=== PATIENT | female | born 1950 | race Caucasian/White ===

== ENCOUNTER 2022-02-05 22:33 | Emergency (ER) | payer MEDICARE ==
[~2022-02-05] VITALS: Ht 170.2 cm; Wt 53.1 kg
[~2022-02-05 22:33] MED LIST: CLEOCIN HCL300 MG PO; GABAPENTIN100 MG PO; LISINOPRIL-HCT1 EAC1 PO; MYSOLINE50 MG PO; NAPROXEN500 MG PO; PERCOCET 7.5-31 EACH PO
--- OUTSIDE RECORDS SUMMARY | 2022-02-05 22:36 | XMS ---
PreManage Notification: TAMAR BURTON Security Pest Controller Assistant Events No recent Security Events currently on file CRITERIA MET - GANESH C[facility] PROVIDERS ALICIA GT[facility] Internal Medicine Current PHONE: Unknown [facility] Current PHONE: [phone] Adi has no Care Guidelines for this patient. [place] VISIT COUNT (12 MO.) 2 DANAE Heath TOTAL 2 NOTE: Visits indicate total known visits. ED/UCC VISIT TRACKING (12 MO.) 02/05/2022 22:33 [facility] [place] TYPE: Emergency COMPLAINT: - RIGHT LEG WOUND 03/17/2021 15:11 [facility] [place] TYPE: Emergency COMPLAINT: - RT FOOT PAIN DIAGNOSES: - Personal history of malignant neoplasm of breast - Essential (primary) hypertension - Other supervisor intermediates (current) drug therapy - Pain in right lower leg - Pain in right ankle and joints of right foot - Cellulitis of right lower limb INPATIENT VISIT TRACKING (12 MO.) No inpatient visits to display in this time frame [email or web address]
== END 2022-02-06 01:35 | disposition home or self-care (01) ==
LOC: ED 22:33
DX: S91.001D Unspecified open wound, right ankle, subsequent encounter (principal); I10 Essential (primary) hypertension; Z85.3 Personal history of malignant neoplasm of breast; Z79.899 Other long term (current) drug therapy
CPT/HCPCS: 99282

== ENCOUNTER 2023-01-30 03:20 | Emergency (ER) | payer MEDICARE ==
[~2023-01-30] VITALS: Wt 53.1 kg
--- OUTSIDE RECORDS SUMMARY | ~2023-01-30 | XMS | Continuity of Care Document ---
Demographics + + + | Address | [address] | | | [place] [address] | + + + | Preferred Language | Unknown | + + + | Marital Status | | + + + | Rastafarian Affiliation | Unknown | + + + | Race | White | + + + | Ethnic Group | Not or | + + + Author + + + | Author | [facility] | + + + | Organization | [facility] | + + + | Address | [address] | | | [place] [address] | + + + | Phone | | + + + Care Team Providers + + + + | Care Resource Management Specialist Name | Role | Phone | + + + + Unavailable | Unavailable | + + + + Unavailable | Unavailable | + + + + Allergies No information. Encounters No information. Functional Status No information. Immunizations No information. Medications + + + + | date | description | facility | + + + + | 2022-02-07 00:00 | OXYCODONE | [facility] | | | HCL/ACETAMINOPHEN | | + + + + | 2022-02-07 00:00 | | [facility] | | | LISINOPRIL/HYDROCHLOROTHIAZ | | | | IMELDA | | + + + + | 2022-02-07 00:00 | NAPROXEN | [facility] | + + + + | 2022-02-07 00:00 | PRIMIDONE | [facility] | + + + + | 2021-03-17 00:00 | GABAPENTIN | [facility] | + + + + Problems + + + + | date | description | facility | + + + + | 2015-04-03 00:00 | Contusion of knee | [facility] | + + + + | 2021-03-17 00:00 | Cellulitis | [facility] | + + + + | 2022-02-06 00:00 | Encounter for wound | [facility] | | | re-check | | + + + + Procedures No information. Results/Labs No information. Social History No information. Vital Signs + + + +---------+ | date | measurement | value | units | + + + +---------+ | 2022-02-05 00:00 | BMI | 18.3 | kg/m2 | + + + +---------+ | 2022-02-05 00:00 | height_metric | 170.18 | cm | + + + +---------+ | 2022-02-05 00:00 | height_standard | 67 | in | + + + +---------+ | 2022-02-05 00:00 | weight_metric | 53.07 | kg | + + + +---------+ | 2022-02-05 00:00 | weight_standard | 117 | lb | + + + +---------+ | 2022-02-06 00:00 | BP_diastolic | 72 | mmHg | + + + +---------+ | 2022-02-06 00:00 | BP_systolic | 116 | mmHg | + + + +---------+ | 2022-02-06 00:00 | heart_rate | 68 | /min | + + + +---------+ | 2022-02-06 00:00 | o2_saturation | 98 | % | + + + +---------+ | 2022-02-06 00:00 | respiration_rate | 16 | /min | + + + +---------+ | 2022-02-06 00:00 | temperature_metric | 36.72 | C | | | | | | + + + +---------+ | 2022-02-06 00:00 | | 98.1 | F | | | temperature_standar | | | | | d | | | + + + +---------+"
--- OUTSIDE RECORDS SUMMARY | ~2023-01-30 | XMS | Continuity of Care Document ---
Demographics + + + | Address | [address] | | | [place] [address] | + + + | Preferred Language | Unknown | + + + | Marital Status | | + + + | Oriental Orthodox Affiliation | Unknown | + + + | Race | White | + + + | Ethnic Group | Not or | + + + Author + + + | Author | [facility] | + + + | Organization | [facility] | + + + | Address | [address] | | | [place] [address] | + + + | Phone | | + + + Care Team Providers + + + + | Care Outbound Sales Specialist Name | Role | Phone | + + + + Unavailable | Unavailable | + + + + Unavailable | Unavailable | + + + + Allergies No information. Encounters No information. Functional Status No information. Immunizations No information. Medications + + + + | date | description | facility | + + + + | 2022-02-07 00:00 | OXYCODONE | [facility] | | | HCL/ACETAMINOPHEN | | + + + + | 2022-02-07 00:00 | | [facility] | | | LISINOPRIL/HYDROCHLOROTHIAZ | | | | IMELDA | | + + + + | 2022-02-07 00:00 | NAPROXEN | [facility] | + + + + | 2022-02-07 00:00 | PRIMIDONE | [facility] | + + + + | 2021-03-17 00:00 | GABAPENTIN | [facility] | + + + + Problems + + + + | date | description | facility | + + + + | 2015-04-03 00:00 | Contusion of knee | [facility] | + + + + | 2021-03-17 00:00 | Cellulitis | [facility] | + + + + | 2022-02-06 00:00 | Encounter for wound | [facility] | | | re-check | [...]
[2023-01-30 05:53] VITALS: BP 130/90
--- NOTE | 2023-01-31 13:09 | EKG ---
[facility] [address] [place], [place] [address] Signed Sinus tachycardia with premature atrial complexes Biatrial enlargement Left axis deviation Left bundle branch block Abnormal ECG prolonged QTc No previous ECGs available Confirmed by ELIZABETH CHOPRA MD ([id number]) on 01/31/2023 1:08:59 PM Electronically Signed By: ELIZABETH CHOPRA 01/31/23 1309 PATIENT NAME: TAMAR BURTON Electrocardiogram DATE OF : 46 PHYSICIAN: ELIZABETH CHOPRA REPORT #: [id number] REPORT IS CONFIDENTIAL AND NOT TO BE RELEASED WITHOUT AUTHORIZATION
== END 2023-01-30 06:00 | disposition short-term general hospital (02) ==
LOC: ED 03:20
DX: J81.0 Acute pulmonary edema (principal); Q25.43 Congenital aneurysm of aorta; I10 Essential (primary) hypertension; Z79.899 Other long term (current) drug therapy
CPT/HCPCS: 36415; 71045; 71275; 74175; 80053; 81001; 83605; 83880; 84484; 85025; 87040; 87502; 93005; 93010; 94640; 94660; C9803; J0696; J1940; J2930; Q9967; U0002

== ENCOUNTER 2023-09-08 08:12 | Inpatient (IN) | payer MEDICARE ==
[~2023-09-08] VITALS: Ht 170.2 cm; Wt 44.5 kg
[2023-09-08] MEDS ORDERED: PANTOPRAZOLE SODIUM 40 MG/10 ML VIAL IV ONE (08:30)
[2023-09-08] MEDS ORDERED: HYDROmorphone HCL 1 MG/ML SYR IV PRN (08:30)
[2023-09-08] MEDS ORDERED: ondansetron HCL 4 MG/2 ML VIAL IV ONE (08:45)
[2023-09-08 08:47] LABS: BASOPHILS 0.4 % (0-2); EOSINOPHILS 0.1 % (0-6); HEMATOCRIT 34.2 % (35.0-50.0); HEMOGLOBIN 11.1 g/dL (12.0-18.0); LYMPHOCYTES 6.7 % (24-44); MCH 29.5 (27-36); MCHC 32.6 g/dl (30-36); MCV 90.6 fl (81-99); MONOCYTES 7.6 % (0-12); NEUTROPHILS 85.2 % (39-80); PLATELET COUNT 388 K/uL (140-440); RBC 3.78 M/ul (4.3-5.7); RDW 14.9 (10.5-15.0)
[2023-09-08 08:58] LABS: PARTIAL THROMBOPLASTIN TIME 108.1 Sec (22.9-41.3)
[2023-09-08 08:59] LABS: ALBUMIN/GLOBULIN RATIO 0.58 (1.1-2.4); ANION GAP 12.5 (7-21); BILIRUBIN, TOTAL 0.9 ng/dL (0.2-1.0); BUN/CREATININE RATIO 30.76 (6.0-28.6); CREATININE, SERUM 0.91 mg/dL (0.55-1.02); POTASSIUM 3.5 mmol/L (3.5-5.1); PROTEIN, TOTAL 8.2 g/dL (6.4-8.2)
[2023-09-08 09:18] LABS: ABO A; RH POSITIVE
[2023-09-08 09:19] LABS: ANTIBODY SCREEN NEGATIVE
[2023-09-08 09:23] LABS: PROTIME > 150.0 Sec (11.2-14.2)
[2023-09-08] MEDS ORDERED: METOPROLOL TART50 MG PO (09:27)
[2023-09-08] MEDS ORDERED: OMEPRAZOLE40 MG PO (09:27)
[2023-09-08] MEDS ORDERED: FARXIGA10 MG PO (09:28)
[2023-09-08] MEDS ORDERED: HYDROCHLOROTHIA25 MG PO (09:28)
[2023-09-08] MEDS ORDERED: ENTRESTO 24 MG1 EACH PO (09:29)
[2023-09-08] MEDS ORDERED: SODIUM CHLORIDE 0.9% 500 ML IV PRN (09:30)
[2023-09-08] MEDS ORDERED: PHYTONADIONE IV ONE (09:45)
[2023-09-08] MEDS ORDERED: DEXTROSE 5% IV ONE (09:45)
[2023-09-08 10:21] LABS: PARTIAL THROMBOPLASTIN TIME 138.9 Sec (22.9-41.3)
[2023-09-08] MEDS ORDERED: ondansetron HCL 4 MG/2 ML VIAL IV PRN (10:30)
[2023-09-08 10:33] LABS: BILIRUBIN, URINE NEGATIVE (negative); BLOOD/HGB, URINE LARGE (Negative); KETONE, URINE SMALL (Negative); LEUK ESTERASE, URINE MODERATE (negative); NITRITE, URINE POSITIVE (negative)
[2023-09-08 10:44] LABS: CASTS, URINE NONE SEEN \\lpf; CRYSTALS, URINE NONE SEEN (0-1+); EPITHELIAL CELLS, URINE 0 /lpf (0-1+); RED BLOOD CELLS, URINE >50 /hpf (0-5)
[2023-09-08 10:45] LABS: BACTERIA, URINE 2+ /hpf (negative); COLLECTION TYPE, URINE CLEAN CATCH; REFLEX CULTURE, URINE Yes (No)
[2023-09-08 10:54] LABS: PROTIME > 150.0 Sec (11.2-14.2)
[2023-09-08 11:04] VITALS: BP 116/62
[2023-09-08] MEDS ORDERED: PHARMACY RENAL DOSE ADJUSTMENT 1 DOSE MISC PO SCH (12:00)
[2023-09-08 12:55] VITALS: BP 116/62
[2023-09-08 12:58] VITALS: BP 116/60
--- NOTE | 2023-09-08 14:14 | EKG ---
[facility] [address] [place] [address] Signed Normal sinus rhythm Possible Left atrial enlargement Left axis deviation Left bundle branch block Abnormal ECG When compared with ECG of 30-JAN-2023 03:19, premature atrial complexes are no longer present Vent. rate has decreased BY 51 BPM T wave inversion less evident in Lateral leads Confirmed by KATIE JEAN MD ([id number]) on 09/08/2023 2:13:46 PM Electronically Signed By: KATIE JEAN 09/08/23 1414 PATIENT NAME: TAMAR BURTON Electrocardiogram DATE OF : 46 PHYSICIAN: KATIE JEAN REPORT #: [id number] REPORT IS CONFIDENTIAL AND NOT TO BE RELEASED WITHOUT AUTHORIZATION
[2023-09-08 16:08] LABS: INR 1.8 (0.80-1.30); PROTIME 20.5 Sec (11.2-14.2)
[2023-09-08] MEDS ORDERED: DEXTROSE 50% 50 ML SYR IV PRN ×2 (17:00)
[2023-09-08] MEDS ORDERED: IBLOOD GLUCOSE TEST STRIP 1 EA TEST VI SCH (17:00)
[2023-09-08] MEDS ORDERED: GLUCAGON,HUMAN RECOMBINANT 1 MG/ML VIAL SUB-Q PRN (17:00)
[2023-09-08] MEDS ORDERED: INSULIN LISPRO 100 UNIT/ML ML SUB-Q SCH (17:00)
[2023-09-08] MEDS ORDERED: IBLOOD GLUCOSE TEST STRIP 1 EA TEST XX PRN (17:00)
[2023-09-08] MEDS ORDERED: DEXTROSE 5% 1,000 ML IV PRN (17:00)
[2023-09-08 17:40] VITALS: BP 96/58
[2023-09-08 17:43] VITALS: BP 116/60
[2023-09-08 20:45] LABS: EOSINOPHILS 0.7 % (0-6); HEMATOCRIT 27.3 % (35.0-50.0); LYMPHOCYTES 16.3 % (24-44); MCHC 33.1 g/dl (30-36); MCV 90.5 fl (81-99); MONOCYTES 10.2 % (0-12); NEUTROPHILS 72.8 % (39-80); PLATELET COUNT 295 K/uL (140-440); RBC 3.01 M/ul (4.3-5.7); RDW 14.6 (10.5-15.0)
[2023-09-08 20:54] VITALS: BP 96/56
[2023-09-08 21:00] LABS: INR 1.55 (0.80-1.30); PROTIME 18.2 Sec (11.2-14.2)
[2023-09-08] MEDS ORDERED: MELATONIN 3 MG TAB PO PRN (21:00)
[2023-09-08] MEDS ORDERED: PRIMIDONE 50 MG TAB PO SCH (21:00)
[2023-09-08] MEDS ORDERED: TRIMETHOPRIM/SULFAMETHOXAZOLE 1 EA TAB PO SCH (21:00)
[2023-09-08] MEDS ORDERED: ENOXAPARIN SODIUM 40 MG/0.4 ML SYR SUB-Q SCH (22:30)
[2023-09-09] VITALS (13 sets, daily range): BP systolic 84–113; BP diastolic 48–68
[2023-09-09 05:34] LABS: BASOPHILS 1.4 % (0-2); EOSINOPHILS 1.1 % (0-6); HEMATOCRIT 24.9 % (35.0-50.0); HEMOGLOBIN 8.3 g/dL (12.0-18.0); LYMPHOCYTES 23.2 % (24-44); MCH 30.3 (27-36); MCHC 33.4 g/dl (30-36); MCV 90.8 fl (81-99); MONOCYTES 10.9 % (0-12); NEUTROPHILS 63.4 % (39-80); PLATELET COUNT 273 K/uL (140-440); RBC 2.74 M/ul (4.3-5.7); RDW 14.9 (10.5-15.0)
[2023-09-09 05:41] LABS: ANION GAP 10.4 (7-21); BUN/CREATININE RATIO 34.44 (6.0-28.6); CALCIUM 8.2 mg/dL (8.5-10.1); CREATININE, SERUM 0.9 mg/dL (0.55-1.02); POTASSIUM 3.4 mmol/L (3.5-5.1)
[2023-09-09 06:04] LABS: INR 1.43 (0.80-1.30)
[2023-09-09] MEDS ORDERED: PANTOPRAZOLE SODIUM 40 MG TABEC PO SCH (09:00)
[2023-09-09] MEDS ORDERED: METOPROLOL TARTRATE 50 MG TAB PO SCH (09:00)
[2023-09-09] MEDS ORDERED: LOSARTAN POTASSIUM 100 MG TAB PO SCH (09:00)
[2023-09-09] MEDS ORDERED: SENNOSIDES/DOCUSATE 1 EA TAB PO SCH (09:00)
[2023-09-09] MEDS ORDERED: VALSARTAN 160 MG TAB PO SCH (09:00)
[2023-09-09] MEDS ORDERED: hydroCHLOROthiazide 25 MG TAB PO SCH (09:00)
[2023-09-09] MEDS ORDERED: ASPIR-TRIN325 MG PO (10:09)
[2023-09-09] MEDS ORDERED: WARFARIN SOD 4 MG TAB PO SCH (16:00)
[2023-09-09] MEDS ORDERED: WARFARIN PER PHARMACY PROTOCOL PO SCH (16:00)
[2023-09-09] MEDS ORDERED: POLYETHYLENE GLYCOL 3350 1 PACKET PO SCH (21:00)
[2023-09-09] MEDS ORDERED: SACUBITRIL/VALSARTAN 1 EACH TABLET PO SCH (21:00)
[2023-09-09] MEDS ORDERED: SODIUM CHLORIDE 0.9% 500 ML IV SCH (22:00)
[2023-09-10 03:45] VITALS: BP 111/68
[2023-09-10 05:41] LABS: INR 3.13 (0.80-1.30); PROTIME 31.9 Sec (11.2-14.2)
[2023-09-10 10:31] VITALS: BP 107/70
[2023-09-10] MEDS ORDERED: SULFAMETHOXAZO1 EAC1 PO (10:45)
[2023-09-10] MEDS ORDERED: WARFARIN SODIUM5 MG PO (10:53)
[2023-09-10] MEDS ORDERED: KLOR-CON 1010 MEQ PO (10:56)
[2023-09-10] MEDS ORDERED: WARFARIN SODIUM4 MG PO (11:04)
[2023-09-10 11:10] VITALS: BP 107/70
[2023-09-10 11:21] LABS: HEMATOCRIT 26.5 % (35.0-50.0); HEMOGLOBIN 8.7 g/dL (12.0-18.0); MCH 30.1 (27-36); MCV 91.3 fl (81-99); RBC 2.9 M/ul (4.3-5.7); RDW 14.9 (10.5-15.0)
[2023-09-10 12:24] VITALS: BP 110/59
[2023-09-10 12:28] VITALS: BP 110/59
[2023-09-10] MEDS ORDERED: WARFARIN SOD HOLD 1 EA PO SCH (16:00)
== END 2023-09-10 12:45 | disposition home or self-care (01) | DRG 918 ==
LOC: ED 08:12 → MS 10:14
PROVIDERS: Emergency Medicine; Internal Medicine; ADMIT Internal Medicine; ATTEND Internal Medicine
DX: T45.511A Poisoning by anticoagulants, accidental (unintentional), initial encounter (principal); N39.0 Urinary tract infection, site not specified; D68.9 Coagulation defect, unspecified; D64.9 Anemia, unspecified; E11.9 Type 2 diabetes mellitus without complications; I48.91 Unspecified atrial fibrillation; I10 Essential (primary) hypertension; Z85.3 Personal history of malignant neoplasm of breast; Z98.890 Other specified postprocedural states; Z79.899 Other long term (current) drug therapy; Z79.01 Long term (current) use of anticoagulants
CPT/HCPCS: 36415; 71045; 80048; 80053; 81001; 85025; 85027; 85610; 85730; 86850; 86900; 86901; 87088; 93005; 93010; A9270; C9113; J1170; J1650; J2405; J3430; J7040

== ENCOUNTER 2024-11-23 05:44 | Day surgery (SDC) | payer MEDICARE ==
[~2024-11-23] VITALS: Ht 170.2 cm; Wt 52.2 kg
[~2024-11-23 05:44] MED LIST changes: +ASPIR-TRIN325 MG PO; +ENTRESTO 24 MG1 EACH PO; +FARXIGA10 MG PO; +HYDROCHLOROTHIA25 MG PO; +KLOR-CON 1010 MEQ PO; +LACTATED RINGER'S 1,000 ML IV SCH; +LOSARTAN POTASS25 MG PO; +METOPROLOL TART50 MG PO; +OMEPRAZOLE40 MG PO; +ROSUVASTATIN CA10 MG PO; +ROSUVASTATIN CA40 MG NG; +SPIRONOLACTONE25 MG PO; +SULFAMETHOXAZO1 EAC1 PO; +WARFARIN SODIUM1 MG PO; +WARFARIN SODIUM4 MG PO; +WARFARIN SODIUM5 MG PO
[2024-11-23 06:05] VITALS: BP 140/85
[2024-11-23] MEDS ORDERED: ENOXAPARIN40 MG/0.4 SUB-Q (06:08)
[2024-11-23] MEDS ORDERED: TYLENOL PM EXS1 EACH PO (06:21)
[2024-11-23] MEDS ORDERED: AMPICILLIN SOD IV SCH (07:00)
[2024-11-23] MEDS ORDERED: HEParin SOD (PORCINE) 5,000 UNIT/ML SDV SUB-Q SCH (07:00)
[2024-11-23] MEDS ORDERED: IBLOOD GLUCOSE TEST STRIP 1 EA TEST VI PRN ×2 (07:00→11:00)
[2024-11-23] MEDS ORDERED: SODIUM CHLORIDE 0.9% IV SCH (07:00)
[2024-11-23] MEDS ORDERED: GENTAMICIN SULFATE 80 MG in SODIUM CHLORIDE 0.9% 100 ML IV SCH (07:00)
[2024-11-23] MEDS ORDERED: LIDOCAINE HCL 1% 5 ML SDV INJ ONE (07:00)
--- NOTE | 2024-11-23 07:51 | NUR ---
LE 0730: [facility] IS HERE TO TAKE PT TO IMAGAING. PT IS SALINE LOCKED.
[2024-11-23] MEDS ORDERED: ACETAMINOPHEN 1,000 MG/100 ML VIAL ONE (10:16)
[2024-11-23] MEDS ORDERED: LIDOCAINE HCL 2% 5 ML SDV ONE ×2 (10:16)
[2024-11-23] MEDS ORDERED: KETOROLAC TROMETHAMINE 30 MG/ML VIAL ONE (10:16)
[2024-11-23] MEDS ORDERED: propofoL 200 MG/20 ML VIAL ONE (10:16)
[2024-11-23] MEDS ORDERED: fentaNYL citrate 100 MCG/2 ML VIAL ONE (10:16)
[2024-11-23] MEDS ORDERED: ondansetron HCL 4 MG/2 ML VIAL ONE (10:16)
[2024-11-23] MEDS ORDERED: DEXAMETHASONE SOD PHOS 4 MG/ML VIAL ONE (10:16)
[2024-11-23] MEDS ORDERED: Methylene Blue 100 MG/10 ML SDV ONE (10:19)
[2024-11-23] MEDS ORDERED: ePHEDrine sulfate 50 MG/ML AMP ONE (10:36)
[2024-11-23] MEDS ORDERED: NALOXONE HCL 0.4 MG SYR IV PRN ×2 (11:00→12:00)
[2024-11-23] MEDS ORDERED: ondansetron HCL 4 MG/2 ML VIAL IV PRN (11:00)
[2024-11-23] MEDS ORDERED: HYDROmorphone HCL 1 MG/ML SYR IV PRN (11:00)
[2024-11-23] MEDS ORDERED: droPERidol 5 MG/2 ML VIAL IV PRN (11:00)
[2024-11-23] MEDS ORDERED: fentaNYL citrate 50 MCG/ML SDV IV PRN (11:00)
[2024-11-23] MEDS ORDERED: PROCHLORPERAZINE EDISYLATE 10 MG/2 ML VIAL IV PRN (11:00)
[2024-11-23] MEDS ORDERED: SEVOFLURANE 250 ML BTL INH ONE (11:31)
--- NOTE | 2024-11-23 11:52 | NUR ---
11/23/24 1152 Leticia Rawls 1135-PT ARRIVES TO PACU VIA STRETCHER, RESTING SEMI FOWLERS, PT NOT RESPONSIVE TO NOXIOUS STIMULI, OPA IN PLACE, VSS ON 6L VIA MASK, RR EVEN AND UNLABORED. 1150-PT AWAKENS ON OWN, OPA REMOVED AN TITRATED TO RA, VS REMAIN STABLE. PT DENIES PAIN OR NAUSEA.
[2024-11-23] MEDS ORDERED: OXYCODON-ACETA1 EAC2 PO (11:57)
[2024-11-23] MEDS ORDERED: ACETAMINOPHEN500 MG PO (11:58)
[2024-11-23] MEDS ORDERED: LACTATED RINGER'S 1,000 ML IV SCH (12:00)
[2024-11-23] MEDS ORDERED: OXYCODONE/APAP 7.5/325 TAB PO PRN (12:00)
[2024-11-23] MEDS ORDERED: ACETAMINOPHEN 500 MG TAB PO PRN (12:00)
[2024-11-23] MEDS ORDERED: LOVENOX40 MG/0.4 SUB-Q (12:03)
[2024-11-23 12:15] VITALS: BP 142/76
--- NOTE | 2024-11-23 12:18 | NUR ---
LE 1215: PT IS BACK TO DS FROM PACU. SHE IS BACK TO HER BASELINE. SHE IS TOLERATING WATER AND CRACKERS. SHE RECIEVED PAIN MEDS IN PACU. CALL LIGHT WITHIN REACH. NO ADDITIONAL NEEDS AT THIS TIME. DC CRITERIA REVIEWED BY PT.
[2024-11-23 13:13] VITALS: BP 112/90
--- NOTE | 2024-11-23 13:23 | NUR ---
LE 1314: PT IS DOING WELL. SHE HAS IMPROVEMENT IN HER PAIN AND IS TOLERATING HER WATER AND CRACKERS. SHE WOULD LIKE TO GET UP TO USE THE BATHROOM. SHE IS ASSISTED UP OOB WITH STANDBY ASSIST. LE 1318: FAMILY IS CALLED NAD NOTIFIED THAT THE PT WOULD BE READY TO GO HOME IN ABOUT 20 MINUTES IF THEY WANTED TO HEAD THIS WAY AND MEET US AT THE FRONT DOORS. LE 1320: PT IS ABLE TO VOID 300MLS YELLOW URINE. SHE AMBUALTES WITH STAND BY ASSIST BACK TO HER ROOM. SHE IS EDUCATED ON HOW TO BEST DRESS HERSELF AND TO TURN ON HER CALL LIGHT WHEN SHE IS READY.
--- NOTE | 2024-11-23 13:55 | NUR ---
LE 1330: PT IS GIVEN WRITTEN AND VERBAL DC INSTRUCTIONS. QUESTIONS ARE ASKED AND ANSWERED. PT VERBALIZES UNDERSTANDING OF DC INSTRUCTIONS. LE 1335: PT IS TAKEN TO PERSONAL VEHICLE VIA WC. LE 1354: PT TRANSFERS HERSELF FROM WC TO PERSONAL VEHICLE WITHOUT ISSUES.
--- NOTE | 2024-11-25 13:09 | OR ---
[facility] [address] [place], [place] [address] Signed DATE OF OPERATION: 11/23/2024 SURGEON: Mario Howard MD PREOPERATIVE DIAGNOSES: 1. Right infiltrating ductal breast carcinoma. 2. Bridge therapy for history of aortic valve replacement. POSTOPERATIVE DIAGNOSES: 1. Right infiltrating ductal breast carcinoma. 2. Bridge therapy for history of aortic valve replacement. PROCEDURES: 1. Injection of methylene blue dye for sentinel lymph node identification. 2. Right deep axillary sentinel lymph node biopsies x3. 3. Right partial mastectomy. ANESTHESIA: General LMA, Narendra Choby, WINDING MACHINE OPERATOR and local 10 mL of 0.25% Marcaine with epinephrine. INDICATION: This 74-year-old white woman is a patient of Dr. Roxann John. I am familiar with her from the distant past, having taken care of a left-sided breast cancer in 2014. That lesion at that time was invasive ductal carcinoma, grade cm in greatest dimension, which included treatment to include partial mastectomy, sentinel lymph node biopsy and postprocedure radiation therapy. She has had no problem of recurrence on the left side. In August of this year, she was found to have abnormality of the right breast, ultimately undergoing image guided biopsy by ultrasound confirming infiltrating ductal carcinoma of the breast. She was referred to Dr. Huseyin Whitt at that time and through a series of scenarios is now referred to me for definitive treatment of the problem. She has already had placement of a ANNELISE logging equipment mechanic localizing device and is to undergo right partial mastectomy today and by image guidance with ANNELISE logging equipment mechanic technology as well as right sentinel lymph node biopsy. She understands the risk of bleeding, infection, cosmetic deformity, need for additional treatment and other unforeseen complications and wished to proceed. The patient has a complex vascular surgery history including aortic valve replacement, an enlarged aortic root and complex upper extremity revascularization in the past. She Electronically Signed By: MARIO HOWARD MD 11/25/24 1309 PATIENT NAME: TAMAR BURTON OPERATIVE REPORT DATE OF : 46 REPORT #: [id number] PHYSICIAN: MARIO HOWARD MD PCP: ROXANN JOHN MD REPORT IS CONFIDENTIAL AND NOT TO BE RELEASED WITHOUT AUTHORIZATION [facility] [address] [place] [address] Signed is chronically anticoagulated with Coumadin. She has been initiated with bridge therapy using Lovenox per standard protocol. FINDINGS: Good localization of the lesion in the breast was noted. The ANNELISE logging equipment mechanic device was actually visualized on that basis. Additional breast tissue was excised to provide a larger margin. It is noted that the right breast is quite small and atretic. The right sentinel lymph node biopsies identified at least three sentinel lymph nodes, none of them were clinically suspicious. DESCRIPTION OF PROCEDURE: The patient was brought to the operating room and given a general LMA type anesthetic. Preoperative antibiotic Ancef was given. Her Lovenox dose was held for today consistent with her bridge therapy plan. Sequential compression device stockings were used. The patient had undergone injection of radionuclide for sentinel lymph node identification earlier in the day. Affirmation of signal in the right axilla as well as signal for the ANNELISE logging equipment mechanic in the right breast was undertaken. The right breast and chest was prepared with chlorhexidine solution and draped sterilely. 0.5 mL of methylene blue dye had been injected by ia prior to preparation. Using the C-Trak gamma probe device, the area of maximal uptake was noted in the right axilla. A small transverse incision was made and dissection carried through the subcutaneous tissue immediately identifying blue lymphatics. These were followed to a single lymph node, which was elevated and dissected free and the root of it clipped. It was excised and passed as sentinel lymph node #1. Additional interrogation of the axilla identified an area of maximum uptake and using similar technique wide resection was undertaken. Clips were applied to blood vessels as necessary. Once excised at least two additional sentinel lymph nodes were identified and passed for permanent pathology. Additional interrogation of the axilla showed no significant uptake. The area was irrigated and then packed with laparotomy pad. Attention was turned towards the breast parenchyma itself. Using the ANNELISE logging equipment mechanic probe, an area of maximal uptake was identified 2 cm from the areolar margin in the lateral inferior aspect. An incision was made directly over the abnormality. Dissection was carried through the dermis with electrocautery. Using the ANNELISE logging equipment mechanic probe examination did identify the area of maximal parenchymal uptake and this was elevated and ultimately widely resected. Careful use of the probe to guide dissection was undertaken; she has very small and minimal breast tissue and therefore avoidance of excessive excision was kept in mind. Once the specimen was excised, was examined carefully and although no hard mass was noted. The ANNELISE logging equipment mechanic clip was identified on the edge of the specimen in the deep margin. On that basis, additional breast tissue was excised in the deep margin corresponding to this area. The specimen had been marked with a suture orienting the Electronically Signed By: MARIO HOWARD MD 11/25/24 1309 PATIENT NAME: TAMAR BURTON OPERATIVE REPORT DATE OF : 46 REPORT #: [id number] PHYSICIAN: MARIO HOWARD MD PCP: ROXANN JOHN MD REPORT IS CONFIDENTIAL AND NOT TO BE RELEASED WITHOUT AUTHORIZATION [facility] [address] [place], [place] [address] Signed specimen, the short stitch superior and long stitch lateral prior to explantation from the breast itself. Once the additional breast tissue was excised, irrigation was undertaken, hemostasis assured with electrocautery. The margins of the excision site were marked with clips. The parenchyma was then reapproximated with interrupted 2-0 Vicryl, closing the defect as much as possible. Skin was closed with running subcuticular 3-0 Vicryl. Examination of the right axilla showed no sign of bleeding. Spring was applied to the depths of the wound and the wound closed with interrupted 2-0 Vicryl and skin closed with running subcuticular 3-0 Vicryl. Steri-Strips were applied as were Acticoat dressings. Report from the radiologist confirmed that the ANNELISE logging equipment mechanic implant was within the parenchyma excised. A close margin was noted and acknowledged that additional tissue had been excised. The patient was ultimately extubated and transferred to the recovery room in good condition and suffered no complications. Sponge, needle, and instrument counts were reported as correct x3. MD AME Linder/FELICIAL /[id number] cc: Roxann John MD Copies: ROXANN JOHN DMD ~ Electronically Signed By: MARIO HOWARD MD 11/25/24 1309 PATIENT NAME: TAMAR BURTON OPERATIVE REPORT DATE OF : 46 REPORT #: [id number] PHYSICIAN: MARIO HOWARD MD PCP: ROXANN JOHN MD REPORT IS CONFIDENTIAL AND NOT TO BE RELEASED WITHOUT AUTHORIZATION
--- NOTE | 2024-12-07 13:55 | PATH ---
[facility] [address] [place], [place] [address] Signed THIS IS AN ADDENDUM REPORT SPECIMEN(S): A SENTINEL NODE #1 SPECIMEN(S): B SENTINEL NODE #2 AND #3 SPECIMEN(S): C RIGHT BREAST, DEEP MARGIN SPECIMEN(S): D RIGHT BREAST SPECIMEN SOURCE: A. SENTINEL NODE #1 B. SENTINEL NODE #2 AND #3 C. RIGHT BREAST, DEEP MARGIN D. RIGHT BREAST v CLINICAL HISTORY: Right breast. Infiltrating ductal carcinoma of right breast. FINAL PATHOLOGIC DIAGNOSIS: A. Lymph node, sentinel #1, excision: - One lymph node, negative for metastatic carcinoma (0/1) B. Lymph node, sentinel #2 and #3, excision: - Three lymph nodes, negative for metastatic carcinoma (0/3) C. Breast, right "deep margin", excision: - Benign breast tissue with fibrocystic changes - Microcalcifications identified in association with nonneoplastic tissue - Negative for invasive or in situ carcinoma D. Breast, right, excision: - Ductal carcinoma in situ - No residual invasive carcinoma is present in the excision, see synoptic report and comment INVASIVE CARCINOMA OF THE BREAST: Resection Applies To: A-D SPECIMEN Procedure: Excision (less than total mastectomy) Specimen Laterality: Right TUMOR Tumor Site: Not specified Histologic Type: Micro-invasive carcinoma Tumor Size: Microinvasion only (less than or equal to 1 mm) Tumor Focality: Single focus of invasive carcinoma PATIENT NAME: TAMAR BERMAN PATHOLOGY DATE OF : 46 REPORT #: [id number] PHYSICIAN: [facility] PATHOLOGY PCP: ROXANN JOHN MD REPORT IS CONFIDENTIAL AND NOT TO BE RELEASED WITHOUT AUTHORIZATION [facility] [address], [place] [address] Signed 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) Size (Extent) of DCIS: Estimated size (extent) of DCIS is at least (Millimeters) - 6 mm Architectural Patterns: Cribriform Nuclear Grade: Grade I (low) Necrosis: Not identified Lymphatic and / or Vascular Invasion: Not identified Microcalcifications: Present in non-neoplastic tissue Treatment Effect in the Breast: No known presurgical therapy MARGINS Margin Status for DCIS: All margins negative for DCIS Distance from DCIS to Closest Margin: 1 mm Closest Margin(s) to DCIS: Inferior REGIONAL LYMPH NODES Regional Lymph Node Status: All regional lymph nodes negative for tumor Total Number of Lymph Nodes Examined (sentinel and non-sentinel): 4 Number of [place] Nodes Examined: 4 pTNM CLASSIFICATION (AJCC 8th Edition) pT Category: pT1mi pN Category: pN0 N Suffix: (sn) ADDITIONAL FINDINGS Additional Findings: Atypical lobular hyperplasia, florid usual ductal hyperplasia, biopsy site changes (2) Breast Biomarker Testing Performed on Previous Biopsy: Estrogen Receptor (ER) Status: Positive (greater than 10% of cells demonstrate nuclear positivity) Percentage of Cells with Nuclear Positivity: 91-100% Progesterone Receptor (PgR) Status: Positive Percentage of Cells with Nuclear Positivity: 91-100% HER2 (by immunohistochemistry): Negative (Score 1+) Testing Performed on COMMENT: The previous histologic material ([id number]) is reviewed in conjunction with the current case. The diagnosis of a 1 mm focus of microinvasive carcinoma is confirmed. In the current specimen, two biopsy sites are identified, one of which is in close proximity to ductal carcinoma in situ. There is no residual invasive carcinoma in the resection specimen. Thus, synoptic reporting elements PATIENT NAME: TAMAR BERMAN PATHOLOGY DATE OF : 46 REPORT #: [id number] PHYSICIAN: ANDREEA UMAÑA PCP: ROXANN JOHN MD REPORT IS CONFIDENTIAL AND NOT TO BE RELEASED WITHOUT AUTHORIZATION [facility] [address] [place] [id number] Signed (including size, histologic type, and receptor status) are reflective of the prior biopsy specimen. As part of [facility] Quality Improvement Program, this case was reviewed by another member of our pathology staff. P MICROSCOPIC EXAMINATION: Histologic sections of all submitted blocks are examined by light microscopy. These findings, together with the gross examination, support the pathologic diagnosis. GROSS DESCRIPTION: A. The specimen, labeled and designated "Anupama Berman, " and designated on the requisition "sentinel node #1," is received in formalin and consists of 2.5 x 1.6 x 0.7 cm portion of yellow-weems multilobulated adipose tissue that contains one blue possible lymph node that is 1.3 cm in greatest dimension. The lymph node is sectioned and entirely submitted in cassette A1. Only adipose tissue remains within the container. B. The specimen, labeled and designated "Cullen, B, " and designated on the requisition "sentinel lymph node #2 and #3," is received in formalin and consists of 5.4 x 3.6 x 1.7 cm portion of yellow-weems adipose tissue that upon dissection reveals three possible lymph nodes that measure up to 2.2 cm in greatest dimension. The lymph nodes are entirely submitted for histologic examination. Only adipose tissue remains within the container. Cassette Summary: (B1-B2) one possible lymph node, sectioned (B3) one possible lymph node, trisected (B4-B5) one possible lymph node, sectioned C. The specimen, labeled and designated "Cullen, B, " and designated on the requisition "deep margin," is received in formalin and consists of one 5 g unoriented discoid portion of yellow-weems fibroadipose tissue that is 5.2 x 4.3 x 1.4 cm. One surface is inked blue and the opposite is inked black. The specimen is serially sectioned perpendicular to the long axis revealing approximately 90% of the specimen is yellow-weems greasy adipose tissue and 10% delicate pink fibrous tissue. No discrete mass lesions are grossly identified. The specimen is entirely submitted with cross-sections in each cassette, C1-C12. Time of collection: 11:04 AM November 23, 2024. PATIENT NAME: TAMAR BERMAN PATHOLOGY DATE OF : 46 REPORT #: [id number] PHYSICIAN: ANDREEA UMAÑA PCP: ROXANN JOHN MD REPORT IS CONFIDENTIAL AND NOT TO BE RELEASED WITHOUT AUTHORIZATION [address] [address] Signed Time into formalin: 11:04 AM November 23, 2024. Processor load time: 9 AM November 25, 2024. Total fixation time in formalin: 45 hours 56 minutes The ASCO/CAP guidelines related to HER2 and hormone receptor testing in breast specimens have been met and the specimen has been placed in formalin within one hour and fixed in 10% neutral buffered formalin for 6 to 72 hours. D. The specimen, labeled and designated "Anupama Berman, " and designated on the requisition "right breast cancer, short stitch superior, long stitch lateral," is received in formalin and consists of 21 gram oriented portion of yellow-weems fibroadipose tissue that is 6.4 x 4.5 x 2.3 cm. A short suture is present and identifies the superior margin; a long suture identifies the lateral margin. The specimen is inked as follows: superior - blue; inferior - green; medial - red; lateral - orange; anterior - yellow; and posterior - black. The specimen is serially sectioned from medial to lateral into 11 slices revealing a 1.2 x 1.2 x 0.9 cm area of induration present in slices 3-5 containing a metallic clip in slice three. The area of induration is 1.6 cm from the anterior soft tissue margin, 0.1 cm from the posterior soft tissue margin, 0.1 cm from the superior soft tissue margin, 1.0 cm from the inferior soft tissue margin, 0.8 cm from the medial soft tissue margin, and 3.1 cm from the lateral soft tissue margin. A metallic vice president of talent acquisition detector is present in slice eight. Approximately 80% of the remaining specimen is a yellow-weems greasy adipose tissue and 20% is a white-weems rubbery fibrous tissue. Guide Escort sections are submitted in 12 cassettes. Cassette Summary: (D1) slice one, medial soft tissue resection margin, perpendicular (D2) fibroadipose tissue adjacent, medial to area of induration, slice two (D3-D4) slice three with area of induration and clip (D5-D6) slice four with area of induration (D7-D8) slice five with area of induration (D9) fibroadipose tissue adjacent, lateral to area of induration, slice six (D10-D11) slice eight, vice president of talent acquisition detector (D12) slice 11, lateral soft tissue resection margin, perpendicular Additional Cassettes: (D13-D15) slice seven (D16-D17) slice nine Time of collection: 11:04 AM November 23, 2024. PATIENT NAME: TAMAR BERMAN PATHOLOGY DATE OF : 46 REPORT #: [id number] PHYSICIAN: ANDREEA UMAÑA PCP: ROXANN JOHN MD REPORT IS CONFIDENTIAL AND NOT TO BE RELEASED WITHOUT AUTHORIZATION [facility] [address], [place] [address] Signed Time into formalin: 11:15 AM November 23, 2024. Processor load time: 9 AM November 25, 2024. Ischemic time: 11 minutes Total fixation time in formalin: 45 hours 45 minutes The ASCO/CAP guidelines related to HER2 and hormone receptor testing in breast specimens have been met and the specimen has been placed in formalin within one hour and fixed in 10% neutral buffered formalin for 6 to 72 hours. FB (under the direct supervision of a pathologist) Additional tissue is submitted in cassettes D13-D17 per Dr. Townsend request. FB The Gross Description was prepared using a voice recognition system. The report was reviewed for accuracy; however, sound-alike word errors, addition and/or deletions may occur. If there is any question about this report, please contact Client Services. ADDITIONAL NOTES: Immunohistochemical and/or in situ hybridization studies if performed in this case included appropriate positive controls that reacted as expected. This test was developed and its performance characteristics determined by [facility]. It has not been cleared or approved by the U.S. Food and Drug Administration. The FDA has determined that such clearance or approval is not necessary. This test is used for clinical purposes. It should not be regarded as investigational or for research. [facility] is certified under the Clinical Laboratory Improvement Amendments of 1988 (CLIA) as qualified to perform high complexity clinical laboratory testing. PERFORMING LABORATORY: Technical component was performed by [facility], [address] [place] [id number] (CLIA# [id number]). Professional interpretation was performed by [facility], [address] [place] [id number] (CLIA#: [id number]). ADDITIONAL NOTES: Immunohistochemical and/or in situ hybridization studies if performed in this case included appropriate positive controls that reacted as expected. This test was developed and its performance characteristics determined by [facility]. It has not been cleared or approved by the U.S. Food and Drug Administration. The FDA has determined that such clearance or approval is not PATIENT NAME: TAMAR BERMAN PATHOLOGY DATE OF : 46 REPORT #: [id number] PHYSICIAN: [facility] PCP: ROXANN JOHN MD REPORT IS CONFIDENTIAL AND NOT TO BE RELEASED WITHOUT AUTHORIZATION [facility] [address] [place] [id number] Signed necessary. This test is used for clinical purposes. It should not be regarded as investigational or for research. [facility] is certified under the Clinical Laboratory Improvement Amendments of 1988 (CLIA) as qualified to perform high complexity clinical laboratory testing. Professional interpretation was performed by [facility], [address] [place] [id number] (CLIA#: [id number]). REASON FOR ADDENDUM: To add results of IHC testing DIAGNOSIS SUMMARY: For part D, immunohistochemical stains for p63 and smooth muscle myosin heavy chain were performed and support the above interpretation. Diagnostician: Greg Holman MD Pathologist Electronically Signed 12/07/2024 Copies: ~ PATIENT NAME: TAMAR BERMAN PATHOLOGY DATE OF : 46 REPORT #: [id number] PHYSICIAN: [facility] PCP: ROXANN JOHN MD REPORT IS CONFIDENTIAL AND NOT TO BE RELEASED WITHOUT AUTHORIZATION
== END 2024-11-23 13:35 | disposition home or self-care (01) ==
LOC: OPS 05:44 → DS 05:44 → EDSTATUS 07:30 → OPS 07:30 → NUC 07:30 → OPS 13:35
PROVIDERS: ATTEND Surgery
PROC: 0HBT0ZZ Excision of Right Breast, Open Approach (ICD-10-PCS; principal; 2024-11-23 09:55)
PROC: 07B50ZX Excision of Right Axillary Lymphatic, Open Approach, Diagnostic (ICD-10-PCS; 2024-11-23 09:55)
DX: C50.911 Malignant neoplasm of unspecified site of right female breast (principal); N60.91 Unspecified benign mammary dysplasia of right breast; K21.9 Gastro-esophageal reflux disease without esophagitis; I25.2 Old myocardial infarction; E78.5 Hyperlipidemia, unspecified; I10 Essential (primary) hypertension; Z17.0 Estrogen receptor positive status [ER+]; Z17.21 Progesterone receptor positive status; Z17.32 Human epidermal growth factor receptor 2 negative status; Z79.01 Long term (current) use of anticoagulants; Z79.84 Long term (current) use of oral hypoglycemic drugs; Z79.899 Other long term (current) drug therapy; Z95.2 Presence of prosthetic heart valve; Z90.710 Acquired absence of both cervix and uterus
CPT/HCPCS: 00400; 76098; 78195; 88307; 88341; 88342; A9541; J0131; J0290; J1100; J1580; J1644; J1885; J2003; J2405; J2704; J3010; J3490; J7121